=== PATIENT | female | born 1965 | race Two or more races ===

== ENCOUNTER 2019-06-24 05:35 | Inpatient (IN) | payer BC, OTHER ==
--- NOTE | 2019-06-24 05:50 | PDOC ---
Attending Attestation - Resident Resident Name: Gina Carbajal - ED Attending Attestation I have performed the following: I have examined & evaluated the patient, The case was reviewed & discussed with the resident, I agree w/resident's findings & plan - HPI HPI: 06/24/19 07:06 Pt comited 7 x and she has epigastric and RUQ pain. She ate a spinach cheese tart that she made. Pt has no fever She has PSHx of hysterectomy - Physicial Exam PE: 06/24/19 07:07 RUQ pain. afebrile Heart lungs normal no suprapubic pain No C/C/E no flank pain no rashes - Medical Decision Making 06/24/19 07:08 signed out to the day team Pt will be sent to [facility]. IVF and morphine and pepcid given Heart Score/ECG Review - ECG Intrepretation Rhythm: Regular Rhythm - [place]: Normal - P and HI Delta Wave(s) Present: No WPW: No - QRS Poor R Wave Progression: No Q Wave Present: No - ST and T Early Repolarization: No Non Specific ST-T Wave changes: No Flattened T Waves: No Prolonged Q-T Interval: No - ECG Impressions Normal ECG: Yes Non-specific ST Elevation: No Ischemic Changes: No Bradycardia: No Torsades rhea Pointes: No WPW: No
[2019-06-24] MEDS ORDERED: FAMOTIDINE 20 MG/50 ML IVPB 20 MG/50 ML MG IVPB ONE ×2 (06:06→06:08)
[2019-06-24] MEDS ORDERED: SODIUM CHLORIDE 1,000 ML IV STA (06:06)
[2019-06-24] MEDS ORDERED: morphine CARPU-JECT 4 MG/1 ML DISP.SYRIN IVPUSH ONE (06:06)
[2019-06-24] MEDS ORDERED: morphine SULFATE 4 MG/ML VIAL ONE (06:08)
--- NOTE | 2019-06-24 06:12 | PDOC ---
History of Present Illness - General Chief Complaint: Pain Stated Complaint: DIFFICULTY BREATHING ,BACK,ABDOMINAL PAIN Time Seen by Provider: 06/24/19 05:48 History Source: Patient Exam Limitations: No Limitations - History of Present Illness Travel History: No Initial Comments: 06/24/19 06:06 54y F with no significant PMH presenting to ED with complaints of epigastric abdominal pain radiating to the back and sob that began at 1900 last night. Pt states that for lunch yesterday she had a questionable meal that had been in her fridge for a while. She then developed abdominal pain and vomiting at dinner time. She threw up her dinner and vomited 7 times with it appearing yellow. Last BM was yesterday and it was normal, no blood. She has not had this problem in the past. Pain is constant, and not alleviated by anything. Denies fever, chills, chest pain, urinary symptoms, weakness, headache, alcohol use. PMD: Lopez PMH: none PSH: hysterectomy, abdominoplasty Meds: none Allergies: nkda Social: denies Past History - Past Medical History Allergies/Adverse Reactions: Allergies Allergy/AdvReac Type Severity Reaction Status Date / Time No Known Allergies Allergy Verified 06/24/19 05:42 - Psycho Social/Smoking Cessation Hx Smoking History: Never smoked Hx Alcohol Use: No Drug/Substance Use Hx: No Review of Systems - Review of Systems Constitutional: No: Symptoms Reported HEENTM: No: Symptoms Reported Respiratory: Yes: Shortness of Breath Cardiac (ROS): No: Symptoms Reported ABD/GI: Yes: See HPI, Nausea, Vomiting, Abdominal cramping : No: Symptoms Reported Musculoskeletal: No: Symptoms Reported Integumentary: No: Symptoms Reported Neurological: No: Symptoms reported *Physical Exam - Vital Signs Last Vital Signs Temp Pulse Resp BP Pulse Ox 98.3 F 82 18 153/74 100 06/24/19 05:38 06/24/19 05:38 06/24/19 05:38 06/24/19 05:38 06/24/19 05:38 - Physical Exam General Appearance: Yes: Appropriately Dressed, Obese. No: Apparent Distress HEENT: positive: EOMI, ABILIO, Normal ENT Inspection Neck: positive: Trachea midline, Supple Respiratory/Chest: positive: Lungs Clear, Normal Breath Sounds. negative: Crackles, Rales, Rhonchi, Stridor, Wheezing Cardiovascular: positive: Regular Rhythm, Regular Rate, S1, S2. negative: Edema , JVD, Murmur Gastrointestinal/Abdominal: positive: Normal Bowel Sounds, Soft, Tenderness ( epigastric and RUQ) Musculoskeletal: negative: CVA Tenderness Extremity: positive: Normal Capillary Refill. negative: Swelling Integumentary: positive: Normal Color, Dry, Warm Neurologic: positive: plate grinder II-XII NML intact, Fully Oriented, Alert, Normal Mood/ Affect, Normal Response, Motor Strength 09/09 ED Treatment Course - LABORATORY CBC & Chemistry Diagram: 06/24/19 06:23 06/24/19 06:07 - RADIOLOGY Radiology Studies Ordered: Category Date Time Status ABDOMEN US -LIMITED [US] Stat Ultrasound 06/24/19 06:05 Ordered Medical Decision Making - Medical Decision Making 06/24/19 06:51 54y F presenting to ED with epigastric pain radiating to the back, vomiting and sob vitals wnl ddx includes pancreatitis, cholecystitis, choledocolithiasis, cholangitis, colitis, pud, gastritis, atypical acs, dissection -cbc, cmp, trop, lactic, lipase -fluids, pain meds, pepcid -ekg, ruq sono 06/24/19 07:27 signed out to day team; pending labs, sono and dispo. Discharge - Discharge Information Problems reviewed: Yes Clinical Impression/Diagnosis: Abdominal pain Qualifiers: Abdominal location: epigastric Qualified Code(s): R10.13 - Epigastric pain Condition: Guarded - Follow up/Referral - Patient Discharge Instructions - Post Discharge Activity
[2019-06-24 07:01] LABS: BASO % 0.1 % (0-2.0); HEMATOCRIT 41.8 % (32.4-45.2); HEMOGLOBIN 14.1 GM/dL (10.7-15.3); LYMPH % 5.4 % (8-40); MCHC 33.7 g/dl (32.0-36.0); MEAN CELL VOLUME 86.1 fl (80-96); MEAN PLT VOLUME 9.6 fl (7.5-11.1); MONO % 2.1 % (3.8-10.2); NEUT % 92.4 % (42.8-82.8); PLATELET COUNT 170 K/MM3 (134-434); RBC 4.85 M/mm3 (3.60-5.2); RDW 14.3 % (11.6-15.6); WHITE BLOOD COUNT 10.6 K/mm3 (4.0-10.0)
[2019-06-24 07:13] LABS: BILIRUBIN,TOTAL 0.7 mg/dL (0.2-1); BLOOD UREA NITROGEN 26.6 mg/dL (7-18); CALCIUM 9.4 mg/dL (8.5-10.1); CREATININE 0.8 mg/dL (0.55-1.3); POTASSIUM 3.9 mmol/L (3.5-5.1); TOT PROT 7.5 g/dl (6.4-8.2)
[2019-06-24 07:14] LABS: INR 1.02 (0.83-1.09)
[2019-06-24 07:15] LABS: LIPASE 176 U/L (73-393)
[2019-06-24 07:17] LABS: ACTIVATED PTT 31.4 SECONDS (25.2-36.5)
[2019-06-24] MEDS ORDERED: ONDANSETRON 4 MG/2 ML VIAL IVPB ONE (07:28)
[2019-06-24] MEDS ORDERED: ONDANSETRON 4 MG/2 ML VIAL ONE (08:36)
--- NOTE | 2019-06-24 08:38 | PDOC ---
*Physical Exam - Vital Signs Last Vital Signs Temp Pulse Resp BP Pulse Ox 98.3 F 82 18 153/74 100 06/24/19 05:38 06/24/19 05:38 06/24/19 05:38 06/24/19 05:38 06/24/19 05:38 - Physical Exam 06/24/19 08:35 awake alert lungs clear bilat heart rrr on mrg abd soft mild epigastric ruq ttp. no rebound no guarding. ED Treatment Course - LABORATORY CBC & Chemistry Diagram: 06/24/19 06:23 06/24/19 06:07 - ADDITIONAL ORDERS Additional order review: Laboratory Results 06/24/19 06/24/19 06/24/19 06:23 06:07 06:07 PT with INR 12.00 INR 1.02 PTT (Actin FS) 31.4 Sodium 138 Potassium 3.9 Chloride 104 Carbon Dioxide 27 Anion Gap 6 L BUN 26.6 H Creatinine 0.8 Est GFR (CKD-EPI)AfAm 97.55 Est GFR (CKD-EPI)NonAf 84.17 Random Glucose 183 H Lactic Acid 1.9 Calcium 9.4 Total Bilirubin 0.7 AST 30 ALT 47 Alkaline Phosphatase 84 Troponin I Total Protein 7.5 Albumin 4.0 Lipase 06/24/19 05:54 PT with INR INR PTT (Actin FS) Sodium Potassium Chloride Carbon Dioxide Anion Gap BUN Creatinine Est GFR (CKD-EPI)AfAm Est GFR (CKD-EPI)NonAf Random Glucose Lactic Acid Calcium Total Bilirubin AST ALT Alkaline Phosphatase Troponin I < 0.02 Total Protein Albumin Lipase 176 06/24/19 06:23 RBC 4.85 MCV 86.1 MCHC 33.7 RDW 14.3 MPV 9.6 Neutrophils % 92.4 H Lymphocytes % 5.4 L Monocytes % 2.1 L Eosinophils % 0.0 Basophils % 0.1 - Medications Given in the ED: ED Medications Discontinued Medications Generic Name Dose Route Start Last Admin Trade Name Freq PRN Reason Stop Dose Admin Famotidine/Sodium Chloride 20 mg in 50 mls @ 100 mls/hr 06/24/19 06:06 06:27 Pepcid 20 Mg Premixed Ivpb - IVPB 06/24/19 06:35 100 mls/hr ONCE ONE Administration Sodium Chloride 1,000 mls @ 1,000 mls/hr 06/24/19 06:06 06/24/19 06:27 Normal Saline - IV 06/24/19 07:05 1,000 mls/hr ASDIR STA Administration Morphine Sulfate 4 mg 06/24/19 06:06 06/24/19 06:27 Morphine Injection - IVPUSH 06/24/19 06:07 4 mg ONCE ONE Administration Medical Decision Making - Medical Decision Making 06/24/19 08:35 54 yo F no pmh here with epigastric pain ruq pain n/v . threw up 7 - 10 time overnight . no f/c. only surgical history of c section and hysterectomy. signed out to me by overnight team. assumed care of pt at 7 am pending us and labs. on my exam pt with epigastric ruq ttp. labs reviewed normal. us with gallstones, dilated cbc consulted dr zambrano, will admit pt to medical team. Discharge - Discharge Information Problems reviewed: Yes Clinical Impression/Diagnosis: Dilated bile duct, Cholelithiasis Abdominal pain Qualifiers: Abdominal location: epigastric Qualified Code(s): R10.13 - Epigastric pain Condition: Good - Follow up/Referral - Patient Discharge Instructions - Post Discharge Activity
--- NOTE | 2019-06-24 08:39 | PDOC ---
*Physical Exam - Vital Signs Last Vital Signs Temp Pulse Resp BP Pulse Ox 98.3 F 82 18 153/74 100 06/24/19 05:38 06/24/19 05:38 06/24/19 05:38 06/24/19 05:38 06/24/19 05:38 ED Treatment Course - LABORATORY CBC & Chemistry Diagram: 06/24/19 06:23 06/24/19 06:07 - ADDITIONAL ORDERS Additional order review: Laboratory Results 06/24/19 06/24/19 06/24/19 06:23 06:07 06:07 PT with INR 12.00 INR 1.02 PTT (Actin FS) 31.4 Sodium 138 Potassium 3.9 Chloride 104 Carbon Dioxide 27 Anion Gap 6 L BUN 26.6 H Creatinine 0.8 Est GFR (CKD-EPI)AfAm 97.55 Est GFR (CKD-EPI)NonAf 84.17 Random Glucose 183 H Lactic Acid 1.9 Calcium 9.4 Total Bilirubin 0.7 AST 30 ALT 47 Alkaline Phosphatase 84 Troponin I Total Protein 7.5 Albumin 4.0 Lipase 06/24/19 05:54 PT with INR INR PTT (Actin FS) Sodium Potassium Chloride Carbon Dioxide Anion Gap BUN Creatinine Est GFR (CKD-EPI)AfAm Est GFR (CKD-EPI)NonAf Random Glucose Lactic Acid Calcium Total Bilirubin AST ALT Alkaline Phosphatase Troponin I < 0.02 Total Protein Albumin Lipase 176 06/24/19 06:23 RBC 4.85 MCV 86.1 MCHC 33.7 RDW 14.3 MPV 9.6 Neutrophils % 92.4 H Lymphocytes % 5.4 L Monocytes % 2.1 L Eosinophils % 0.0 Basophils % 0.1 - Medications Given in the ED: ED Medications Discontinued Medications Generic Name Dose Route Start Last Admin Trade Name Freq PRN Reason Stop Dose Admin Famotidine/Sodium Chloride 20 mg in 50 mls @ 100 mls/hr 06/24/19 06:06 06:27 Pepcid 20 Mg Premixed Ivpb - IVPB 06/24/19 06:35 100 mls/hr ONCE ONE Administration Sodium Chloride 1,000 mls @ 1,000 mls/hr 06/24/19 06:06 06/24/19 06:27 Normal Saline - IV 06/24/19 07:05 1,000 mls/hr ASDIR STA Administration Morphine Sulfate 4 mg 06/24/19 06:06 02/17/20 06:27 Morphine Injection - IVPUSH 06/24/19 06:07 4 mg ONCE ONE Administration Medical Decision Making - Medical Decision Making 06/24/19 08:37 s/o from night team 54 yo female pmh hysterectomy and 3 C sections presents with epigastric pain radiating to her back and 7 episodes of vomiting. Las neg for elevated WBC, LFTs normal, T bili WNL US shows dilated CBD and cholilithiasis, no signs of acute surendra Discussed with Dr. Andrade, agrees to admission and will assess pt 06/24/19 08:42 Pt PCP John, placed call to Dr. Belcher and left message for admission 06/24/19 08:59 Pt accepted for admission Discharge - Discharge Information Problems reviewed: Yes Clinical Impression/Diagnosis: Dilated bile duct, Cholelithiasis Abdominal pain Qualifiers: Abdominal location: epigastric Qualified Code(s): R10.13 - Epigastric pain Condition: Stable - Admission Yes - Follow up/Referral - Patient Discharge Instructions - Post Discharge Activity
--- NOTE | 2019-06-24 09:52 | EKG ---
Test Reason : Blood Pressure : / mmHG Vent. Rate : 074 BPM Atrial Rate : 074 BPM P-R Int : 196 ms QRS Dur : 100 ms QT Int : 408 ms P-R-T Axes : 063 018 029 degrees QTc Int : 452 ms NORMAL SINUS RHYTHM WITH SINUS ARRHYTHMIA Normal ECG WHEN COMPARED WITH ECG OF 29-AUG-2007 09:19, NO SIGNIFICANT CHANGE WAS FOUND Confirmed by Adrienne George ([id number]) on 06/24/2019 9:52:30 AM Referred By: Confirmed By:Adrienne George
--- NOTE | 2019-06-24 10:41 | CONSULT ---
- Consultation REQUESTING PROVIDER: CONSULT REQUEST: We have been asked to surgically evaluate this patient for abdominal pain. PCP:Amilcar Belcher HISTORY OF PRESENT ILLNESS:54 y/o female w/recent onset of post pransial RUQ abdominal pain associated w/ nausea and vomting came to the ER; she denies dark urine/light stools; she denies any other Gi//LIC[employer]INE[employer] c/o; a dx. w/u was done revealing cholelithiasis/cholecystitis. PMHx: none PSHx: none Allergies Allergy/AdvReac Type Severity Reaction Status Date / Time No Known Allergies Allergy Verified 06/24/19 05:42 REVIEW OF SYSTEMS: CONSTITUTIONAL: Absent: fever, chills, diaphoresis, generalized weakness, malaise, loss of appetite, weight change CARDIOVASCULAR: Absent: chest pain, syncope, palpitations, irregular heart rate, lightheadedness , peripheral edema RESPIRATORY: Absent: cough, shortness of breath, dyspnea with exertion, wheezing, stridor, hemoptysis GASTROINTESTINAL: Present: abdominal pain, abdominal distension, nausea, vomiting, Absent: diarrhea, constipation, melena, hematochezia GENITOURINARY: Absent: dysuria, frequency, urgency, hesitancy, hematuria, flank pain, genital pain MUSCULOSKELETAL: Absent: myalgia, arthralgia, joint swelling, back pain, neck pain SKIN: Absent: rash, itching, pallor HEMATOLOGIC/IMMUNOLOGIC: Absent: easy bleeding, easy bruising, lymphadenopathy NEUROLOGIC: Absent: headache, focal weakness, paresthesias, dizziness, unsteady gait, seizure, mental status changes, bladder or bowel incontinence PSYCHIATRIC: Absent: anxiety, depression, suicidal or homicidal ideation, hallucinations. PHYSICAL EXAM: GENERAL: Awake, alert, and fully oriented, in no acute distress. HEAD: Normal with no signs of trauma. EYES: PERRL, sclera anicteric, conjunctiva clear. NECK: Normal ROM, supple without lymphadenopathy, JVD, or masses. ABDOMEN: Soft, RUQ tender, not distended, normoactive bowel sounds, no guarding , no rebound, no masses. No organomegaly. No hernias. MUSCULOSKELETAL: Normal ROM at all joints. No bony deformities or tenderness. No CVA tenderness. UPPER EXTREMITIES: 2+ pulses, warm, well-perfused. No cyanosis. Cap refill <2 seconds. No peripheral edema. LOWER EXTREMITIES: 2+ pulses, warm, well-perfused. No calf tenderness. No peripheral edema. NEUROLOGICAL: Normal speech, gait not observed. PSYCH: Cooperative. Good eye contact. Appropriate mood and affect. SKIN: Warm, dry, normal turgor, no rashes or lesions noted. Vital Signs Temperature 98.3 F 06/24/19 05:38 Pulse Rate 82 06/24/19 05:38 Respiratory Rate 18 06/24/19 05:38 Blood Pressure 153/74 06/24/19 05:38 O2 Sat by Pulse Oximetry (%) 100 06/24/19 05:38 Lab Results WBC 10.6 K/mm3 (4.0-10.0) H 06/24/19 06:23 RBC 4.85 M/mm3 (3.60-5.2) 06/24/19 06:23 Hgb 14.1 GM/dL (10.7-15.3) 06/24/19 06:23 Hct 41.8 % (32.4-45.2) 06/24/19 06:23 MCV 86.1 fl (80-96) 06/24/19 06:23 MCHC 33.7 g/dl (32.0-36.0) 06/24/19 06:23 RDW 14.3 % (11.6-15.6) 06/24/19 06:23 Plt Count 170 K/MM3 (134-434) 06/24/19 06:23 Sodium 138 mmol/L (136-145) 06/24/19 06:07 Potassium 3.9 mmol/L (3.5-5.1) 06/24/19 06:07 Chloride 104 mmol/L (98-107) 06/24/19 06:07 Carbon Dioxide 27 mmol/L (21-32) 06/24/19 06:07 Anion Gap 6 MMOL/L (8-16) L 06/24/19 06:07 BUN 26.6 mg/dL (7-18) H 06/24/19 06:07 Creatinine 0.8 mg/dL (0.55-1.3) 06/24/19 06:07 Random Glucose 183 mg/dL (74-106) H 06/24/19 06:07 Calcium 9.4 mg/dL (8.5-10.1) 06/24/19 06:07 INR 1.02 (0.83-1.09) 06/24/19 06:23 Imaging w/u reviewed IMP: acute cholecystitis/cholelithiasis/intractable biliary colic PLAN: NPO/IVF/IVABS/for lap surendra possible open 06/25/2019. Eh Andrade MD FACS
[2019-06-24 11:07] LABS: ANISOCYTOSIS 0; MACROCYTOSIS 0; PLATELET ESTIMATE NORMAL
--- NOTE | 2019-06-24 11:40 | HP ---
Admitting History and Physical - Primary Care Physician PCP: Amilcar Belcher - Admission Chief Complaint: ruq pain History of Present Illness: 54y F with no significant PMH presenting to ED with complaints of epigastric ruq abdominal pain radiating to the back and sob that began at 1900 last night. Pt states that for lunch yesterday she had a questionable meal that had been in her fridge for a while. She then developed abdominal pain and vomiting at dinner time. She threw up her dinner and vomited 7 times with it appearing yellow. Last BM was yesterday and it was normal, no blood. She has not had this problem in the past. Pain is constant, and not alleviated by anything. Denies fever, chills, chest pain, urinary symptoms, weakness, headache, alcohol use. - Smoking History Smoking history: Never smoked - Alcohol/Substance Use Hx Alcohol Use: No Home Medications - Allergies Allergies/Adverse Reactions: Allergies Allergy/AdvReac Type Severity Reaction Status Date / Time No Known Allergies Allergy Verified 06/24/19 05:42 - Home Medications Home Medications: Ambulatory Orders Aspirin 81 mg PO 06/25/19 Physical Examination Vital Signs: Vital Signs Temperature 98.3 F 06/24/19 05:38 Pulse Rate 82 06/24/19 05:38 Respiratory Rate 18 06/24/19 05:38 Blood Pressure 153/74 06/24/19 05:38 O2 Sat by Pulse Oximetry (%) 100 06/24/19 05:38 Constitutional: Yes: No Distress HENT: Yes: Atraumatic Neck: Yes: Supple Cardiovascular: Yes: Regular Rate and Rhythm Respiratory: Yes: CTA Bilaterally Gastrointestinal: Yes: Normal Bowel Sounds, Tenderness, Epigastrium Extremities: Yes: WNL Edema: No Peripheral Pulses WNL: Yes Neurological: Yes: Alert, Oriented Labs: CBC, BMP 06/24/19 06:23 06/24/19 06:07 Imaging - Results X-ray: Report Reviewed Ultrasound: Report Reviewed Problem List - Problems (1) Abdominal pain Code(s): R10.9 - UNSPECIFIED ABDOMINAL PAIN Qualifiers: Abdominal location: epigastric Qualified Code(s): R10.13 - Epigastric pain (2) Cholelithiasis Assessment/Plan: npo ivf prn pain meds for OR in am surgery consult will get cardiac clearance Code(s): K80.20 - CALCULUS OF GALLBLADDER W/O CHOLECYSTITIS W/O OBSTRUCTION (3) Dilated bile duct Code(s): K83.8 - OTHER SPECIFIED DISEASES OF BILIARY TRACT Assessment/Plan Laboratory Results - last 24 hr 06/24/19 06/24/19 06/24/19 05:54 06:07 06:07 WBC RBC Hgb Hct MCV MCH MCHC RDW Plt Count MPV Absolute Neuts (auto) Neutrophils % Neutrophils % (Manual) Band Neutrophils % Lymphocytes % Lymphocytes % (Manual) Monocytes % Monocytes % (Manual) Eosinophils % Eosinophils % (Manual) Basophils % Basophils % (Manual) Myelocytes % (Man) Promyelocytes % (Man) Blast Cells % (Manual) Nucleated RBC % Metamyelocytes Hypochromia Platelet Estimate Polychromasia Poikilocytosis Anisocytosis Microcytosis Macrocytosis PT with INR INR PTT (Actin FS) Sodium 138 Potassium 3.9 Chloride 104 Carbon Dioxide 27 Anion Gap 6 L BUN 26.6 H Creatinine 0.8 Est GFR (CKD-EPI)AfAm 97.55 Est GFR (CKD-EPI)NonAf 84.17 Random Glucose 183 H Lactic Acid 1.9 Calcium 9.4 Total Bilirubin 0.7 AST 30 ALT 47 Alkaline Phosphatase 84 Troponin I < 0.02 Total Protein 7.5 Albumin 4.0 Lipase 176 06/24/19 06/24/19 06:23 06:23 WBC 10.6 H RBC 4.85 Hgb 14.1 Hct 41.8 MCV 86.1 MCH 29.0 MCHC 33.7 RDW 14.3 Plt Count 170 MPV 9.6 Absolute Neuts (auto) 9.8 H Neutrophils % 92.4 H Neutrophils % (Manual) 91.8 H Band Neutrophils % 0.0 Lymphocytes % 5.4 L Lymphocytes % (Manual) 3.1 L Monocytes % 2.1 L Monocytes % (Manual) 2 L Eosinophils % 0.0 Eosinophils % (Manual) 0.0 Basophils % 0.1 Basophils % (Manual) 0.0 Myelocytes % (Man) 0 Promyelocytes % (Man) 0 Blast Cells % (Manual) 0 Nucleated RBC % 0 Metamyelocytes 0 Hypochromia 0 Platelet Estimate Normal Polychromasia 0 Poikilocytosis 0 Anisocytosis 0 Microcytosis 0 Macrocytosis 0 PT with INR 12.00 INR 1.02 PTT (Actin FS) 31.4 Sodium Potassium Chloride Carbon Dioxide Anion Gap BUN Creatinine Est GFR (CKD-EPI)AfAm Est GFR (CKD-EPI)NonAf Random Glucose Lactic Acid Calcium Total Bilirubin AST ALT Alkaline Phosphatase Troponin I Total Protein Albumin Lipase Active Medications Generic Name Dose Route Start Last Admin Trade Name Freq PRN Reason Stop Dose Admin Heparin Sodium (Porcine) 5,000 unit 06/24/19 22:00 Heparin - SQ BID ROSITA Sodium Chloride 1,000 mls @ 100 mls/hr 06/24/19 11:45 06/24/19 11:58 Normal Saline - IV 100 mls/hr ASDIR ROSITA Administration Morphine Sulfate 2 mg 06/24/19 11:42 06/24/19 11:58 Morphine Sulfate IVPUSH 2 mg Q4H PRN Administration PAIN LEVEL 4 - 6
[2019-06-24] MEDS ORDERED: MORPHINE SULFATE 2 MG/ML VIAL ONE ×2 (11:53→18:32)
[2019-06-24] MEDS: SODIUM CHLORIDE 1,000 ML IV SCH (11:58)
[2019-06-24] MEDS: MORPHINE SULFATE 2 MG/ML VIAL IVPUSH PRN ×2 (11:58→18:33)
[2019-06-24] MEDS ORDERED: HEPARIN NA (PORCINE) 5,000 UNITS/ML 1ML VIAL SQ SCH (22:00)
[2019-06-24] MEDS ORDERED: HEPARIN NA (PORCINE) 5,000 UNITS/ML 1ML VIAL ONE (22:41)
[2019-06-25] MEDS: MORPHINE SULFATE 2 MG/ML VIAL IVPUSH PRN
[2019-06-25] MEDS: SODIUM CHLORIDE 1,000 ML IV SCH ×2 (03:06→12:08)
[2019-06-25 04:39] VITALS: BMI 31.0
[2019-06-25] MEDS ORDERED: ACETAMINOPHEN 1000 MG/100 ML VIAL (NON FORMULARY) IVPB ONE ×3 (09:15→15:23)
[2019-06-25] MEDS ORDERED: PROPOFOL 20 ML ONE (09:32)
[2019-06-25] MEDS ORDERED: MIDAZOLAM HCL 2 MG/2 ML SINGLE DOSE VIAL ONE (09:32)
[2019-06-25] MEDS ORDERED: ROCURONIUM BROMIDE 50 MG/5 ML SYRINGE ONE (09:34)
[2019-06-25 09:42] LABS: PH,URINE 6.5 (5.0-8.0); URINE APPEARANCE CLEAR; URINE BILIRUBIN NEGATIVE (NEGATIVE); URINE COLOR YELLOW; URINE GLUCOSE (UA) NEGATIVE (NEGATIVE); URINE KETONE TRACE (NEGATIVE); URINE LEUK ESTERASE NEGATIVE (NEGATIVE); URINE NITRITE NEGATIVE (NEGATIVE); URINE PROTEIN NEGATIVE (NEGATIVE)
[2019-06-25] MEDS ORDERED: PANTOPRAZOLE SODIUM 40 MG VIAL IVPUSH SCH (10:00)
--- NOTE | 2019-06-25 11:41 | ECHO ---
Name: KIRIT LORA Exam:Adult Echocardiogram Study Date: 06/25/2019 07:40 AM Age: 54 yrs Height: 69 in Weight: 207 lb BSA: 2.1 m2 MMode/2D Measurements & Calculations IVSd: 0.80 cm Ao root diam: 3.0 cm LVIDd: 5.0 cm LA dimension: 3.3 cm LVIDs: 3.6 cm ACS: 2.1 cm LVPWd: 0.78 cm LVPWs: 1.3 cm EDV(Teich): 117.5 ml ESV(Teich): 54.7 ml Doppler Measurements & Calculations MV E max angel: 95.8 cm/sec Ao V2 max: 119.4 cm/sec MV A max angel: 57.8 cm/sec Ao max P.7 mmHg MV E/A: 1.7 Ao V2 mean: 81.1 cm/sec Ao mean P.0 mmHg Ao V2 VTI: 21.7 cm TR max angel: 199.5 cm/sec Med Peak E' Angel: 12.6 cm/sec TR max P.9 mmHg Med E/e': 7.6 Lat Peak E' Angel: 8.4 cm/sec Lat E/e': 11.3 Procedure A complete two-dimensional transthoracic echocardiogram was performed (2D, M-mode, Doppler and color flow Doppler). The patient was in normal sinus rhythm during the exam. Left Ventricle The left ventricular size, thickness and function are normal. The left ventricular ejection fraction is normal. Ejection Fraction = 65%. E/A reversal consistent with but not diagnostic of poor LV complianc e. The left ventricular wall motion is normal. Right Ventricle The right ventricle is normal in size and function. Atria Normal left and right atrial size and function. Mitral Valve The mitral valve is normal in structure and function. There is trace mitral regurgitation. Tricuspid Valve The tricuspid valve is normal in structure and function. There is trace tricuspid regurgitation. Righ t ventricular systolic pressure is 20 mmhg. Assuming the RA pressure is 5 mmHg. Aortic Valve The aortic valve is normal in structure and function. Pulmonic Valve The pulmonic valve is normal in structure and function. Trace pulmonic valvular regurgitation. Great Vessels The aortic root is normal size. Pericardium/Pleura There is no pericardial effusion. There is no pleural effusion. Interpretation Summary This degree of valvular regurgitation is within normal limits. The left ventricular size, thickness a nd function are normal Ejection Fraction = 65%. MD Jaime Villarreal 06/25/2019 11:40 AM
--- NOTE | 2019-06-25 11:55 | PN ---
Progress Note (short form) - Note Progress Note: Surgery No changes since Dr Andrade's exam yesterday. Patient states she has some nausea and abdominal pain but denies any vomiting. Sh is NPO for surgery today. Vital Signs Temp 100.0 F H 06/25/19 07:23 Pulse 80 06/25/19 07:23 Resp 18 06/25/19 07:23 BP 123/66 06/25/19 07:23 Pulse Ox 99 06/24/19 23:30 Intake & Output 06/24/19 06/24/19 06/25/19 11:59 23:59 11:59 Intake Total 750 Balance 750 Weight 207 lb 210 lb 3.2 oz Intake: IV 750 Normal Saline - 1,000 ml 750 @ 100 mls/hr IV ASDIR ROSITA Rx#:[id number] Other: Voiding Method Toilet # Unmeasured Voids Void 1 Bowel Movement No No Height 5 ft 9 in 5 ft 9 in Body Mass Index (BMI) 30.5 31.0 Weight Measurement Method Standing Scale Weight Measurement Method Est/Stated by Patient CBC, BMP 06/24/19 06:23 06/24/19 06:07 PE: A&Ox3,NAD Unlabored resp on RA ABD: obese, soft, slightly distended with guarding, pain in b/l upper quadrants with no masses. Problem List - Problems (1) Cholelithiasis Assessment/Plan: - plan for lap surendra today with Dr Andrade. - IV ABX - IVF - B/L scds Code(s): K80.20 - CALCULUS OF GALLBLADDER W/O CHOLECYSTITIS W/O OBSTRUCTION
[2019-06-25] MEDS ORDERED: cefOXitin SODIUM 2 GM VIAL (RESTRICTED TO ID) IVPB ONE (12:01)
[2019-06-25] MEDS ORDERED: cefOXitin SODIUM 1 GM VIAL (RESTRICTED TO ID) IVPB ONE (12:14)
[2019-06-25] MEDS ORDERED: BUPIVACAINE HCL/PF 0.5% (5MG/ML) 10 ML VIAL IJ ONE ×2 (13:14→13:43)
[2019-06-25] MEDS ORDERED: ONDANSETRON 4 MG/2 ML VIAL IVPUSH PRN ×2 (13:28→15:23)
[2019-06-25] MEDS ORDERED: LACTATED RINGERS SOLUTION 1,000 ML IV SCH ×2 (13:30→15:23)
[2019-06-25] MEDS ORDERED: ACETAMINOPHEN INJECTION 100 ML IVPB ONE (14:07)
[2019-06-25] MEDS ORDERED: oxyCODONE HCL 5 MG TABLET PO PRN ×2 (14:31)
[2019-06-25] MEDS ORDERED: ACETAMINOPHEN 325 MG TABLET (FP) PO PRN (14:34)
--- NOTE | 2019-06-25 14:42 | OP ---
Operative Note - Note: Operative Date: 06/25/19 Pre-Operative Diagnosis: acute cholecystitis Operation: laparoscopic cholecystectomy Post-Operative Diagnosis: Same as Pre-op Surgeon: Eh Andrade Manager Group: Leonora Vallecillo Anesthesiologist/DIRECTOR OF LABORATORY OPERATIONS: Tom Mohr Anesthesia: General, Local Specimens Removed: gallbladder Estimated Blood Loss (mls): 50 Drains & Tubes with Location: KATE drain RLQ Fluid Volume Replaced (mls): 900 Operative Report Dictated: Yes
--- NOTE | 2019-06-25 14:44 | SURG ---
Surgery Linux [employer] Administrator Note [employer] Administrator: Leonora Vallecillo PA-C Date of Service: 06/25/19 Diagnosis: acute cholecystitis Procedure: laparoscopic cholecystectomy I was present for the entirety of the operative procedure. For further detail, please refer to operative report. Visit type - Case Type Case Type: ED Admission - Emergency Emergency Visit: Yes ED Registration Date: 06/24/19 Care time: The patient presented to the Emergency Department on the above date and was hospitalized for further evaluation of their emergent condition.
--- NOTE | 2019-06-25 15:42 | PN ---
Progress Note (short form) - Note Progress Note: Surgery During clean up from procedure (laparoscopic cholecystectomy), after the patient was closed and sterile field removed, one of the nurses was splashed in the eye with fluid from the laparoscopic suction/sports attorney. It was unclear if the water was clean from inflow port or possibly contaminated with the patient' s blood. The nurse immediately flushed her eyes at the eye station and was sent to the ED for post exposure workup. I spoke to the patient in the PACU, explained what happened and that we needed to obtain consent for post exposure lab work. The patient expressed understanding and agreed to the lab work. Problem List - Problems (1) Cholelithiasis Code(s): K80.20 - CALCULUS OF GALLBLADDER W/O CHOLECYSTITIS W/O OBSTRUCTION
--- NOTE | 2019-06-25 16:26 | PN ---
Progress Note, Physician History of Present Illness: stable - Current Medication List Current Medications: Active Medications Acetaminophen (Tylenol -) 650 mg PO Q6H PRN PRN Reason: pain 1-3 or fever Fentanyl (Sublimaze Injection -) 50 mcg IVPUSH [id number] PRN PRN Reason: PAIN-PACU ORDER X 4 DOSES ONLY Stop: 06/26/19 15:22 Heparin Sodium (Porcine) (Heparin -) 5,000 unit SQ BID [facility] Lactated Ringer's (Lactated Ringers Solution) 1,000 mls @ 125 mls/hr IV [facility] Ondansetron HCl (Zofran Injection) 4 mg IVPUSH Q6H PRN PRN Reason: NAUSEA AND/OR VOMITING Oxycodone HCl (Roxicodone -) 5 mg PO Q4H PRN PRN Reason: PAIN LEVEL 1-5 Oxycodone HCl (Roxicodone -) 10 mg PO Q4H PRN PRN Reason: PAIN LEVEL 6-10 Pantoprazole Sodium (Protonix Iv) 40 mg IVPUSH DAILY [facility] - Objective Vital Signs: Vital Signs Temperature 97.8 F 06/25/19 14:10 Pulse Rate 87 06/25/19 15:40 Respiratory Rate 18 06/25/19 15:40 Blood Pressure 115/71 06/25/19 15:40 O2 Sat by Pulse Oximetry (%) 97 06/25/19 15:40 Constitutional: Yes: No Distress HENT: Yes: Atraumatic Neck: Yes: Supple Cardiovascular: Yes: Regular Rate and Rhythm Respiratory: Yes: CTA Bilaterally Gastrointestinal: Yes: Hypoactive Bowel Sounds, Tenderness Extremities: Yes: WNL Edema: No Neurological: Yes: Alert, Oriented Labs: CBC, BMP 06/24/19 06:23 06/24/19 06:07 INR, PTT INR 1.02 (0.83-1.09) 06/24/19 06:23 Problem List - Problems (1) Abdominal pain Code(s): R10.9 - UNSPECIFIED ABDOMINAL PAIN Qualifiers: Abdominal location: epigastric Qualified Code(s): R10.13 - Epigastric pain (2) Cholelithiasis Assessment/Plan: s/p surgery clear liquid diet Code(s): K80.20 - CALCULUS OF GALLBLADDER W/O CHOLECYSTITIS W/O OBSTRUCTION (3) Dilated bile duct Code(s): K83.8 - OTHER SPECIFIED DISEASES OF BILIARY TRACT
[2019-06-25] MEDS: HEPARIN NA (PORCINE) 5,000 UNITS/ML 1ML VIAL SQ SCH (22:49)
[2019-06-26 08:57] LABS: BASO % 0.2 % (0-2.0); EOS % 0.1 % (0-4.5); HEMATOCRIT 37.1 % (32.4-45.2); HEMOGLOBIN 12.5 GM/dL (10.7-15.3); LYMPH % 18.2 % (8-40); MCH 29.3 pg (25.7-33.7); MCHC 33.8 g/dl (32.0-36.0); MEAN CELL VOLUME 86.6 fl (80-96); MEAN PLT VOLUME 9.6 fl (7.5-11.1); MONO % 6.8 % (3.8-10.2); NEUT % 74.7 % (42.8-82.8); PLATELET COUNT 151 K/MM3 (134-434); RBC 4.28 M/mm3 (3.60-5.2); RDW 14.4 % (11.6-15.6); WHITE BLOOD COUNT 7.7 K/mm3 (4.0-10.0)
[2019-06-26 09:20] LABS: BILIRUBIN,TOTAL 1.3 mg/dL (0.2-1); BLOOD UREA NITROGEN 16.1 mg/dL (7-18); CALCIUM 8.9 mg/dL (8.5-10.1); CREATININE 0.7 mg/dL (0.55-1.3); POTASSIUM 3.8 mmol/L (3.5-5.1); TOT PROT 6.1 g/dl (6.4-8.2)
[2019-06-26] MEDS: HEPARIN NA (PORCINE) 5,000 UNITS/ML 1ML VIAL SQ SCH ×2 (10:40→22:32)
[2019-06-26] MEDS: PANTOPRAZOLE SODIUM 40 MG VIAL IVPUSH SCH (10:40)
--- NOTE | 2019-06-26 12:38 | PN ---
Progress Note (short form) - Note Progress Note: Subjective: The patient states that she feels improved. States that she has some post operative abdominal pain but denies nausea, vomiting, or other complaints. She states that she was able to tolerate clears last night. CBC, BMP 06/26/19 08:03 06/26/19 08:03 Vital Signs Temp 98.9 F 06/26/19 10:00 Pulse 68 06/26/19 10:00 Resp 18 06/26/19 10:00 BP 130/78 06/26/19 10:00 Pulse Ox 95 06/25/19 21:00 Intake & Output 06/25/19 06/26/19 06/26/19 23:59 11:59 23:59 Intake Total 950 0 Output Total 265 50 Balance 685 -50 Intake: IV 600 0 Lactated Ringers Solution 200 1,000 ml @ 125 mls/hr IV ASDIR ROSITA Rx#: [id number] Saline Lock 0 Oral 350 Output: Drainage 215 50 Right 125 50 Estimated Blood Loss 50 Other: Voiding Method Toilet Toilet # Unmeasured Voids Void 2 1 Bowel Movement No No General: Patient was seen and examined while in bed. She is well developed, well nourished, and in no acute distress Abdomen: Soft, incisional tenderness to palpation, no rebound, no guarding, KATE (175cc) serosanguinos Impression/Plan: The patient is a 54 year old female who is POD#1 from a Laparoscopic Cholecystectomy. - Advance diet to regular as tolerated - Adequate pain management - Continue medical management
--- NOTE | 2019-06-26 16:59 | PN ---
Progress Note, Physician - Current Medication List Current Medications: Active Medications Acetaminophen (Tylenol -) 650 mg PO Q6H PRN PRN Reason: pain 1-3 or fever Heparin Sodium (Porcine) (Heparin -) 5,000 unit SQ BID [facility] Last Admin: 06/26/19 10:40 Dose: 5,000 unit Ondansetron HCl (Zofran Injection) 4 mg IVPUSH Q6H PRN PRN Reason: NAUSEA AND/OR VOMITING Oxycodone HCl (Roxicodone -) 5 mg PO Q4H PRN PRN Reason: PAIN LEVEL 1-5 Last Admin: 06/26/19 11:00 Dose: 5 mg Oxycodone HCl (Roxicodone -) 10 mg PO Q4H PRN PRN Reason: PAIN LEVEL 6-10 Last Admin: 06/25/19 21:17 Dose: 10 mg Pantoprazole Sodium (Protonix Iv) 40 mg IVPUSH DAILY [facility] Last Admin: 06/26/19 10:40 Dose: 40 mg - Objective Vital Signs: Vital Signs Temperature 99.4 F 06/26/19 14:00 Pulse Rate 81 06/26/19 14:00 Respiratory Rate 18 06/26/19 14:00 Blood Pressure 107/58 L 06/26/19 14:00 O2 Sat by Pulse Oximetry (%) 95 06/26/19 09:00 Constitutional: Yes: No Distress HENT: Yes: Atraumatic Neck: Yes: Supple Cardiovascular: Yes: Regular Rate and Rhythm Respiratory: Yes: CTA Bilaterally Gastrointestinal: Yes: Normal Bowel Sounds, Tenderness (at the surgery site) Extremities: Yes: WNL Edema: No Neurological: Yes: Alert, Oriented Labs: CBC, BMP 06/26/19 08:03 06/26/19 08:03 INR, PTT INR 1.02 (0.83-1.09) 06/24/19 06:23 Problem List - Problems (1) Abdominal pain Code(s): R10.9 - UNSPECIFIED ABDOMINAL PAIN Qualifiers: Abdominal location: epigastric Qualified Code(s): R10.13 - Epigastric pain (2) Cholelithiasis Assessment/Plan: s/p surgery tolerating regular diet drain in place Code(s): K80.20 - CALCULUS OF GALLBLADDER W/O CHOLECYSTITIS W/O OBSTRUCTION (3) Dilated bile duct Code(s): K83.8 - OTHER SPECIFIED DISEASES OF BILIARY TRACT
[2019-06-27 08:48] LABS: ALBUMIN 2.8 g/dl (3.4-5.0); BILIRUBIN,TOTAL 0.9 mg/dL (0.2-1); BLOOD UREA NITROGEN 22.8 mg/dL (7-18); CALCIUM 8.8 mg/dL (8.5-10.1); CREATININE 0.8 mg/dL (0.55-1.3); POTASSIUM 3.8 mmol/L (3.5-5.1); TOT PROT 5.9 g/dl (6.4-8.2)
[2019-06-27] MEDS: PANTOPRAZOLE SODIUM 40 MG VIAL IVPUSH SCH (10:44)
[2019-06-27] MEDS: HEPARIN NA (PORCINE) 5,000 UNITS/ML 1ML VIAL SQ SCH (10:55)
--- NOTE | 2019-06-27 11:22 | PN ---
Progress Note (short form) - Note Progress Note: Attending Surgeon POD#2 No c/o; tolerating diet VSS AF abdo-soft; port site dressings c/d/i; KATE minimal and serous; o/w negative bili/LFT's normal IMP: improved PLAN: Drain removed uneventfully and stable for d/c to follow up in my office next week. Eh Andrade MD FACS
[2019-06-27 14:00] VITALS: BP 118/68; PULSE 72; TEMP 98.7
--- NOTE | 2019-06-27 15:02 | OP ---
DATE OF OPERATION: 06/25/2019 PREOPERATIVE DIAGNOSIS: Acute cholecystitis and cholelithiasis. PREOPERATIVE DIAGNOSIS: Acute cholecystitis and cholelithiasis. PROCEDURE: Laparoscopic cholecystectomy. SURGEON: Eh Andrade MD ELECTRIC KNIFE OPERATOR: Leonora Vallecillo PA-C ANESTHESIA: General. OPERATIVE FINDINGS: There was acute, possible gangrenous cholecystitis and cholelithiasis. The rest of the findings were unremarkable. PROCEDURE: The patient was placed on the operating table in the supine position and after the induction of general anesthesia the patient's abdomen was prepped with ChloraPrep and draped in sterile fashion. A timeout was taken and pneumoperitoneum established above the umbilicus using a Veress needle. Once 15 mmHg of pressure were obtained, a 5-mm port was placed at the umbilicus and additional lateral 5-mm ports and a subxiphoid 12-mm port. Laparoscopy was carried out and the previously noted findings were observed. The gallbladder was decompressed with a needle and syringe and the gallbladder placed on cephalad and lateral traction. Dissection was begun at the neck of the gallbladder where the peritoneum was opened medially and laterally using blunt dissection and electrocautery. The cystic duct was identified coursing from the neck of the gallbladder towards the common bile duct and it was dissected using blunt dissection proximally and distally for length. Similarly, the artery was identified and dissected proximally and distally for length. A critical view of safety was taken and then the duct and the artery were clipped twice proximally and twice distally with large hemoclips. The duct and artery were then serially divided using Endoshears. Hemostasis was checked for and noted to be good and then the gallbladder was removed from the liver bed in a retrograde fashion using electrocautery. Prior to removal from the edge of the liver, hemostasis in the liver bed was again checked for and noted to be good and then the gallbladder removed from the edge of the liver, placed in an EndoCatch , and brought out through the subxiphoid port. Pneumoperitoneum was reestablished. Copious irrigation was carried out with saline. Hemostasis was verified again. A 10-mm Richard-Weinstein drain was placed in the right hepatorenal fossa and brought out through 1 of the 5-mm ports and secured to the skin with 2-0 silk suture. All port sites were removed under laparoscopic vision without evidence of bleeding from the port sites. The port sites were infiltrated with 0.5% Marcaine and the skin edges reapproximated with 4-0 Biosyn in a subcuticular continuous fashion. Steri-Strips and Band-Aid dressings were placed. The drain was connected to bulb suction and then the patient aroused from general anesthesia and transferred to the postanesthesia care unit in stable condition, awake and alert. ESTIMATED BLOOD LOSS: 50 mL. REPLACEMENT: Crystalloid. DRAINS: One 10-mm Richard-Weinstein in the gallbladder fossa. SPECIMEN: Gallbladder and contents to Pathology. I, Eh Andrade, was physically present in the operating room from the time the patient was placed on the operating table until she was transferred to the postanesthesia care unit in [place]. MD LILIBETH Morocho/[id number] MTDD
--- NOTE | 2019-06-27 16:46 | DS ---
Physical Examination Vital Signs: Vital Signs Temperature 98.7 F 06/27/19 10:00 Pulse Rate 72 06/27/19 10:00 Respiratory Rate 18 06/27/19 10:00 Blood Pressure 118/68 06/27/19 10:00 O2 Sat by Pulse Oximetry (%) 96 06/27/19 09:00 Constitutional: Yes: No Distress HENT: Yes: Atraumatic Neck: Yes: Supple Cardiovascular: Yes: Regular Rate and Rhythm Respiratory: Yes: CTA Bilaterally Gastrointestinal: Yes: Normal Bowel Sounds Extremities: Yes: WNL Neurological: Yes: Alert, Oriented Labs: CBC, BMP 06/26/19 08:03 06/27/19 07:45 Discharge Summary Problems reviewed: Yes Reason For Visit: ABDOMINAL PAIN Condition: Good - Instructions Diet, Activity, Other Instructions: Dr. Andrade Discharge Instructions Dear KIRIT ESCALANTE, Post Operative Instructions Physical activity Resume your normal everyday activity as tolerated no heavy lifting or exercise until seen by your surgeon. You may walk unlimited amounts of and climb stairs. You may resume driving the car when you feel safe and comfortable behind the wheel. Wound care If you have a bandage, leave it on, and keep dry for 48 hours. After that time discard the outer bandage. If there are tapes on the skin under the outer bandage, leave them in place. They will peel off in the next 7 to 10 days. Do Not peel them off. You may shower 2 days after surgery but do not submerge the incisions. Do not apply lotion or ointments to incisions. If there are tapes present on the skin, they can get wet. Diet There are no dietary restrictions. Eat healthy, high-fiber foods. Drink 6 to 8 glasses of liquid each day. This will assist in keeping your bowels are regular. Pain management You may take Tylenol or acetaminophen or Ibuprofen (for example, Motrin, Advil etc.) Any pain prescription medication ordered should be taken as prescribed for moderate to severe pain. Call Dr. Andrade for any of the following: Severe pain not relieved by medication Fever of 101 or higher Excessive bleeding or drainage on dressing Inability to urinate If you experience any chest pain or shortness of breath please seek emergency treatment. Call the office at [phone] for a post operative appointment in 7 - 10 days. Referrals: Eh Andrade MD [Staff Physician] - Amilcar Belcher MD [Staff Physician] - Disposition: HOME - Home Medications Comprehensive Discharge Medication List: Ambulatory Orders Aspirin 81 mg PO 06/25/19
--- NOTE | 2019-06-27 17:46 | PATH ---
Surgical Pathology Report Patient Name: BETH LORA Med. Rec. #: [id number] /Age/Gender: 1965 (Age: 54) / F Account: [id number] Location: [address] [place] [address]/[facility] Taken: 06/25/2019 Received: 06/26/2019 Reported: 06/27/2019 Physicians: MD Amilcar Pérez M.D. Specimen(s) Received GALLBLADDER Clinical History Cholecystitis Final Diagnosis GALLBLADDER, LAPAROSCOPIC CHOLECYSTECTOMY: ACUTE GANGRENOUS CHOLECYSTITIS AND CHOLELITHIASIS. Electronically Signed Beth Christian M.D. Gross Description Received in formalin, labeled "gallbladder," is a 9.8 x 4.0 x 2.8 cm. gallbladder with a 0.2 cm. in length portion of cystic duct attached. The outer surface is booth-qureshi with a focal defect and varies from smooth to shaggy. The lumen contains abundant yellow, irregular to fragmented choleliths ranging from 0.1-1.7 cm in greatest dimension. There is no bile present within the lumen. The mucosa is green-brown with a necrotic appearance. The wall of the gallbladder ranges from 0.1-0.4 cm. in thickness. Account Developer sections are submitted in one cassette. 06/26/2019 [facility]06/26/2019
== END 2019-06-27 13:52 | disposition home or self-care (01) | DRG 419 ==
LOC: JER 05:35 → JERBED 08:39 → J5S 23:02
PROVIDERS: ADMIT Internal Medicine; ATTEND Internal Medicine
PROC: 0FT44ZZ Resection of Gallbladder, Percutaneous Endoscopic Approach (ICD-10-PCS; principal; 2019-06-25 11:00)
DX: K80.00 Calculus of gallbladder with acute cholecystitis without obstruction (principal); R10.13 Epigastric pain; K83.8 Other specified diseases of biliary tract
CPT/HCPCS: 36415; 71046-TC-FY; 76705-TC; 80053; 81003; 83605; 83690; 84460; 84484; 85025; 85610; 85730; 86803; 87086; 87340; 87389; 93005; 93010; 93306-TC; 94760; 99285-25; J0131; J1644; J7030

== ENCOUNTER 2024-02-27 07:06 | Day surgery (SDC) | payer BC ==
[2024-02-21 15:18] VITALS: BMI 32.9
[2024-02-27] MEDS ORDERED: BUPIVACAINE HCL/PF 0.25% (2.5MG/ML) 10 ML VIAL ONE (07:29)
[2024-02-27] MEDS ORDERED: PROPOFOL 40 ML ONE (07:38)
[2024-02-27] MEDS ORDERED: MIDAZOLAM HCL 2 MG/2 ML SINGLE DOSE VIAL ONE (07:48)
[2024-02-27] MEDS ORDERED: ceFAZolin SODIUM 1 GM VIAL ONE (08:30)
[2024-02-27] MEDS ORDERED: ACETAMINOPHEN INJECTION 100 ML ONE (08:31)
[2024-02-27] MEDS ORDERED: DEXAMETHASONE SOD PHOSPHATE 4 MG/1 ML VIAL ONE (09:13)
[2024-02-27] MEDS ORDERED: ONDANSETRON 4 MG/2 ML VIAL ONE (09:20)
[2024-02-27] MEDS ORDERED: KETOROLAC TROMETHAMINE 30 MG/1 ML VIAL ONE (09:20)
[2024-02-27] MEDS ORDERED: FENTANYL CITRATE/PF 50 MCG/ML VIAL ONE ×2 (09:43→10:08)
[2024-02-27] MEDS ORDERED: LACTATED RINGERS SOLUTION 1,000 ML IV SCH (09:45)
[2024-02-27] MEDS: oxyCODONE HCL 5 MG TABLET PO PRN (11:05)
[2024-02-27] MEDS ORDERED: oxyCODONE HCL 5 MG TABLET ONE (11:06)
[2024-02-27 11:13] VITALS: RESP 18; TEMP 97.4
[2024-02-27 12:11] VITALS: BP 118/80; PULSE 74
== END 2024-02-27 12:05 | disposition home or self-care (01) ==
LOC: FASU 07:06
PROVIDERS: ATTEND Orthopaedic Surgery Sports Medicine
PROC: 0SBD4ZZ Excision of Left Knee Joint, Percutaneous Endoscopic Approach (ICD-10-PCS; 2024-02-27)
PROC: 0SBD4ZZ Excision of Left Knee Joint, Percutaneous Endoscopic Approach (ICD-10-PCS; 2024-02-27)
PROC: 0SBD4ZZ Excision of Left Knee Joint, Percutaneous Endoscopic Approach (ICD-10-PCS; 2024-02-27)
PROC: 0SBD4ZZ Excision of Left Knee Joint, Percutaneous Endoscopic Approach (ICD-10-PCS; principal; 2024-02-27 08:47)
DX: S83.242A Other tear of medial meniscus, current injury, left knee, initial encounter (principal); S83.282A Other tear of lateral meniscus, current injury, left knee, initial encounter; M94.262 Chondromalacia, left knee; M65.862 Other synovitis and tenosynovitis, left lower leg; X58.XXXA Exposure to other specified factors, initial encounter; Y92.9 Unspecified place or not applicable; Y93.9 Activity, unspecified
CPT/HCPCS: 94760; J0131